=== PATIENT | female | born 1995 | race Caucasian/White ===

== ENCOUNTER → 2016-06-13 | Outpatient (CLI) | payer BC ==
[~2016-06-13] MED LIST: ASCORBIC ACID500 MG PO; FEOSOL-DPS325 MG PO; MOTRIN-DPS600 MG PO; OXY IR DPS5 MG PO; PHENERGAN DPS25 MG PO; REGLAN-DPS10 MG PO
== END | disposition home or self-care (01) ==
LOC: RAD.S 08:00
DX: R10.9 Unspecified abdominal pain (principal); R19.7 Diarrhea, unspecified; R11.10 Vomiting, unspecified

== ENCOUNTER → 2016-07-01 | Outpatient (CLI) | payer BC | END | disposition home or self-care (01) | LOC: RAD.S 08:00 | DX: R10.9 Unspecified abdominal pain (principal) ==

== ENCOUNTER 2016-07-09 08:05 | Emergency (ER) | payer BC ==
--- NOTE | 2016-07-11 10:03 | NUR ---
Pt triggered for high ED user. Called and spoke with pt. Pt has insurance, has a PCP, and transportation, and able to fill prescribed medications. Deny any needs or concerns at this time.
--- NOTE | 2016-07-14 21:33 | ER ---
ADMIT: 07/09/2016 RM/LOC: ER [facility] MR#: [id number] [id number] [place], [place] [address] RAEANN CAZARES [address] [place] [address] Emergency Room Report SEX: F AGE: 21 : 1995 DATE: 07/09/2016 ADDENDUM: CHIEF COMPLAINT: Abdominal pain. HISTORY OF PRESENT ILLNESS: This is a 21-year-old female who is well known to our ER. She has had multiple workups for her abdomen. She has seen digital content coordinator, she has seen Ob-Quick Mixer Operator. No one has figured out what is causing this belly pain. Here, her vitals were normal. She is not febrile. She is not tachycardic. She is not vomiting. We discussed doing labs versus no labs. She is okay with no labs at this time. She is given Toradol and a GI cocktail. She feels significantly better. She is in the room sleeping now. CLINICAL IMPRESSION: Chronic abdominal pain. ROM Mendoza / Jewel Lomax MD / poonam JOB #: [id number] CC: Jewel Lomax MD, Attending Physician UNKNOWN, Family Physician
== END 2016-07-09 10:30 | disposition home or self-care (01) ==
LOC: ER 08:05
DX: G89.29 Other chronic pain (principal); R10.9 Unspecified abdominal pain; Z88.1 Allergy status to other antibiotic agents

== ENCOUNTER 2016-07-12 13:46 | Emergency (ER) | payer BC ==
--- NOTE | 2016-07-19 11:01 | ER ---
ADMIT: 07/12/2016 RM/LOC: ER [facility] MR#: [id number] [address] [place], [place] [address] RAEANN CAZARES [address] [place] [address] Emergency Room Report SEX: F AGE: 21 : 1995 DATE: 07/12/2016 CHIEF COMPLAINT: Abdominal pain. HISTORY OF PRESENT ILLNESS: This is a 21-year-old, female, who presents today with chronic abdominal pain for the past 4 years. The patient states since Friday she has noticed increasing pain in her abdomen. She admits to fever, chills, nausea, vomiting, and some diarrhea 2 to 3 days ago. She states that she feels like "her inside are trying to pull themselves apart." The patient says the pain is allover. She is unable to give an exact location of her pain. She has been worked up multiple times for chronic abdominal pain with little result. She uses nausea medication and other medications for pain as needed at home and states they do not help. States she feels like her body is immune to them at this point. COURSE IN THE EMERGENCY DEPARTMENT: The patient was seen and examined. She is extremely tearful, very anxious. She complains of abdominal pain everywhere. She does have a temp of 100.0. I did obtain some basic labs on her today. CBC shows white count 12.4, hemoglobin 12, hematocrit 37.3, and platelets 366. CMP; sodium 142, potassium 3.2, CO2 of 25, BUN 12, creatinine 0.7, and glucose 108. Liver enzymes within normal limits. I also got a urine on her, which was normal. The patient was started on IV normal saline running at 150 mL/h. She was given Toradol 15 mg IV. I did initially order some medications for nausea to include Reglan and Benadryl; however, the patient was resting comfortably. She was sedate, decided to hold these medications. I repeatedly walked by her room, saw her resting comfortably with her eyes closed. No vital sign abnormalities. Upon entering the room, she becomes extremely tearful, begins to complain of extreme pain that her medications are not working that she needs to be admitted for pain control and observation. IMPRESSION: Chronic abdominal pain. DISPOSITION: I did have a discussion with the patient that she needs to ADMIT: 07/12/2016 RM/LOC: ER [facility] MR#: [id number] [address] [address] RAEANN CAZARES [address] [place] [address] Emergency Room Report SEX: F AGE: 21 : 1995 follow up with her primary care provider for further management of her pain as the ER is not the appropriate place for chronic pain management. I told her to use Tylenol or Motrin as needed for pain. Activity as tolerated. She will continue her home medications for pain and nausea as needed. Certainly return with any worsening signs or symptoms, but I would like her to follow up with her primary care doctor. Given the fact that she is inflicting on herself, the relief of her pain is very concerning. However, she denies any homicidal or suicidal ideation at this time. Questions were sought and answered to the best of my ability. The patient was discharged from the department in stable condition. ROM Irwin / Dhruv Leyva MD / poonam JOB #: [id number] CC: Dhruv Leyva MD, Attending Physician UNKNOWN, Family Physician Stacey Valentin APRN, BUFFING MACHINE OPERATOR-C
== END 2016-07-12 17:15 | disposition home or self-care (01) ==
LOC: ER 13:46
DX: R10.84 Generalized abdominal pain (principal); G89.29 Other chronic pain; F17.210 Nicotine dependence, cigarettes, uncomplicated; D64.9 Anemia, unspecified; Z88.8 Allergy status to other drugs, medicaments and biological substances

== ENCOUNTER 2016-08-22 17:14 | Emergency (ER) | payer BC ==
--- NOTE | 2016-08-27 23:43 | ER ---
ADMIT: 08/22/2016 RM/LOC: ER [facility] MR#: [id number] [id number] [place], [place] [address] RAEANN CAZARES [address] [place] [address] Emergency Room Report SEX: F AGE: 21 : 1995 DATE: 08/22/2016 PRIMARY PROVIDER: Dr. Simon and Abdifatah Valentin. HISTORY OF PRESENT ILLNESS: The patient is a 21-year-old female, presents to the emergency room complaining of left lower abdominal pain that started this morning at 3:00 a.m. and it is 5 o'clock. She says this has been going on for several weeks as well. She has had issues with abdominal problems, which she had been diagnosed as having endometriosis and an IUD was placed, so the hormones could help improve her chronic abdominal pain. She says I think there is something wrong with the IUD. So, at this point, even though she was told how to check for the cord of the IUD she has not done so. She has had the IUD for almost a week. She denies any vaginal discharge. No fever, nausea, or vomiting. No diarrhea. She states that she is immune to all pain medications and admits that morphine is the only thing that helps her. I declined giving her morphine. I told her I was going to try something different. So, I gave her Toradol and Phenergan. PHYSICAL EXAMINATION: VITAL SIGNS: Blood pressure 149/90, heart rate 78, respirations 14, and O2 sats 96%. By the time the ultrasound was done, we got the reading the IUD is in place and she did have a hemorrhagic cyst in the left side. She was asleep, very comfortable. Did not complain of any pain and was willing to leave and called to pick her up. IMPRESSION: Hemorrhagic ovarian cyst. Left adnexa IUD in place. Instructions given. A prescription for ketorolac given to continue treatment for her acute pain. ROM De Leon / Jame Guerrier MD / poonam JOB #: [id number] CC: Jame Guerrier MD, Attending Physician
== END 2016-08-22 19:40 | disposition home or self-care (01) ==
LOC: ER 17:14
DX: N83.202 Unspecified ovarian cyst, left side (principal); D64.9 Anemia, unspecified; Z88.1 Allergy status to other antibiotic agents

== ENCOUNTER 2016-08-25 11:10 | Emergency (ER) | payer BC ==
--- NOTE | 2016-08-31 17:58 | ER ---
ADMIT: 08/25/2016 RM/LOC: ER [facility] MR#: [id number] [address] [place], [place] [address] RAEANN CAZARES [address] [place] [address] Emergency Room Report SEX: F AGE: 21 : 1995 DATE: 08/25/2016 ADDENDUM: This patient comes into the ER because she has lots of ovarian cysts that is causing her severe pain. She was seen in the ER 2 days ago, they did an ultrasound and diagnosed her as having a cyst. She says that the pain has been continuous despite taking the Toradol that was prescribed to her. She is nauseated and vomiting and rates the pain as a 10/10. On physical exam, her pain is in the left lower quadrant. There is no rebound tenderness or guarding, and she is quite tearful during my exam. On vaginal exam, she has a mild amount of bleeding in the vagina. Cervix is closed, and she is tender in the left adnexa. No cervical motion tenderness. I did do chlamydia and GC and gonorrhea. Urinalysis, CBC, and CMP were also normal. I repeated the ultrasound, which looked similar to the previous ultrasound, but less blood in the pelvis as previously. She was given morphine in the ER. When I went to re-evaluate her, she was feeling better. I wrote a prescription for tramadol, and she is to follow up with her primary as needed. Please see my T-sheet. ROM De Luna / Dhruv Leyva MD / poonam JOB #: [id number] CC: Dhruv Leyva MD, Attending Physician Stacey Valentin APRN, PUBLISHING EDITOR-C, Family Physician James Salgado MD
== END 2016-08-25 18:14 | disposition home or self-care (01) ==
LOC: ER 11:10
DX: N83.202 Unspecified ovarian cyst, left side (principal); F17.200 Nicotine dependence, unspecified, uncomplicated; Z88.2 Allergy status to sulfonamides; Z88.8 Allergy status to other drugs, medicaments and biological substances; Z79.899 Other long term (current) drug therapy

== ENCOUNTER 2016-09-07 09:17 | Emergency (ER) | payer BC ==
--- NOTE | 2016-09-13 15:59 | ER ---
ADMIT: 09/07/2016 RM/LOC: ER [facility] MR#: [id number] [address] [address] RAEANN CAZARES [address] [place] [address] Emergency Room Report SEX: F AGE: 21 : 1995 DATE: 09/07/2016 ADDENDUM: This patient comes into the ER because she had a sudden onset of severe abdominal pain. She has chronic abdominal pain. She is not sure what the cause is. She has had several workups by her physician and also in the emergency room, and no one is sure what the cause of her pain. She rates it as a 10/10. She is tearful and flailing on the bed. Her abdomen has diffuse tenderness upon palpation. She was given Ativan, Phenergan, and Toradol. When I went to re-evaluate her, her pain was gone. She walked out the door without any issues, had no fever, able to keep fluids down in the ER. Please see my T-sheet. ROM De Luna / Jewel Lomax MD / poonam JOB #: [id number] CC: Jewel Lomax MD, Attending Physician Stacey Valentin APRN, COMPONENT INSPECTOR-C, Family Physician
== END 2016-09-07 10:40 | disposition home or self-care (01) ==
LOC: ER 09:17
DX: R10.84 Generalized abdominal pain (principal); F17.210 Nicotine dependence, cigarettes, uncomplicated; Z88.2 Allergy status to sulfonamides; Z88.8 Allergy status to other drugs, medicaments and biological substances

== ENCOUNTER 2016-09-09 11:10 | Emergency (ER) | payer BC ==
--- NOTE | 2016-09-13 19:13 | ER ---
ADMIT: 09/09/2016 RM/LOC: ER [facility] MR#: [id number] [address] [place], [place] [address] RAEANN CAZARES [address] [place] [address] Emergency Room Report SEX: F AGE: 21 : 1995 DATE: 09/09/2016 HISTORY OF PRESENT ILLNESS: The patient is a 21-year-old, recurrent visitor of the emergency room, comes in today complaining of abdominal pain. She says there is a burning sensation. She has talked to her primary provider. They think all this is in her mind. She has been bleeding vaginally for several months now. She does have an IUD in place that has been checked several times. As she has come into the ER, we have done ultrasounds to make sure that is in place. Last time, she was in the ER, she had a rupture cyst in almost a week ago. She also had wisdom tooth, endometriosis that she states is the cause of all her pain. She has had anemia. ALLERGIES: SHE IS ALLERGIC TO BACTRIM AND ZOFRAN. SOCIAL HISTORY: She is a smoker of 1/3rd pack a day. Quit drugs recently. PHYSICAL EXAMINATION: Blood pressure 135/89, heart rate is 106, respirations 16, and temp 98.6. She is flailing and moving all over the room, bending over and pointing to her abdomen, there is no rebound, tenderness, nor guarding. She cried but there are no tears. I did do a vaginal examination, which did show some brownish discharge. I tested it in wet mount and came back negative for clue cells. Her cervix is closed and no cervical motion tenderness. I did do a CBC on her to check for hemoglobin and a white count is 10.3 with a hemoglobin of 11.7, hematocrit is 36.7. She was given Toradol 30 mg, Phenergan 25, and Ativan 1 mg. She was discharged with a diagnosis of chronic abdominal pain, endometriosis, ovarian cyst, which is follicular and generalized abdominal pain. Ultram prescription for home use and encouraged her very strongly to follow up with her primary provider. They can help her. They can refer her somewhere and I mentioned how important it is to have one provider for care, so she can have the best possible followup for her problem. While I am talking to her, she was texting. She states she needs to find out what the problem is and the pain is unbearable. At times, she wants to . I asked if she had a plan, she denied that. After the medications prescribed, she was very relaxed and no complaint of pain. ROM De Leon / oJse Stoddard MD / poonam JOB #: [id number] CC: Dhruv Leyva MD, Attending Physician UNKNOWN, Family Physician
== END 2016-09-09 14:40 | disposition home or self-care (01) ==
LOC: ER 11:10
DX: N80.9 Endometriosis, unspecified (principal); N83.02 Follicular cyst of left ovary; F17.210 Nicotine dependence, cigarettes, uncomplicated; Z88.0 Allergy status to penicillin; Z88.8 Allergy status to other drugs, medicaments and biological substances

== ENCOUNTER 2016-09-23 10:51 | Emergency (ER) | payer BC ==
--- NOTE | 2016-09-25 10:39 | ER ---
ADMIT: 09/23/2016 RM/LOC: ER [facility] MR#: [id number] [address] [place], [place] [address] RAEANN CAZARES [address] [place] [address] Emergency Room Report SEX: F AGE: 21 : 1995 DATE: 09/23/2016 TIME: 1051 hours. Please refer to my T-sheet for complete H and P. Briefly, the patient is a 21-year-old, comes in with abdominal pain. It has been for years, on and off, but it is severe today. She has been told she has endometriosis. She has an IUD. She also talked to her nurse about problems in the remote past. She did not want to bring up to me, she would like to talk to, it is already is on. The pain comes and goes. The IUD has not helped. She is sexually active. Says she had an STD checked within about 2 months, it was normal. She has not changed her sexual activity. She feels like the IUD has made it worse. PHYSICAL EXAMINATION: VITAL SIGNS: Stable. HEENT: Grossly normal. LUNGS: Clear. HEART: Regular. ABDOMEN: Diffusely tender. No rebound. No guarding. No pain right at McBurney's point, just lower pelvis. EMERGENCY DEPARTMENT COURSE: CBC normal except white count 18.9 and platelets 480. Chemistries normal except potassium 3.4, glucose 121. UA showed 2 white cells, otherwise 3+ ketones and normal. Urine negative. I did a CT scan which was negative. We gave her Zofran and Toradol, she was improved. I had a long discussion with the police due to the concern she only expressed with the nurse that she did not want me involved with. Crisis Center sent out our patient. They have worked to that on their side. She did not bring any up to me, did not want to talk to me about it. ASSESSMENT: 1. Abdominal pain. 2. Anxiety. 3. Dehydration. PLAN: Fluids. Motrin, I wrote her script for 600 mg t.i.d. I wanted her to follow up with Dr. Simon. Return if worse and coordinate with crisis center. Jame Guerrier MD/ poonam JOB #: [id number] CC: Jame Guerrier MD, Attending Physician Stacey Valentin APRN, EMS INSTRUCTOR-C, Family Physician
== END 2016-09-23 14:30 | disposition home or self-care (01) ==
LOC: ER 10:51
DX: R10.84 Generalized abdominal pain (principal); F41.9 Anxiety disorder, unspecified; E86.0 Dehydration; Z88.1 Allergy status to other antibiotic agents; Z88.8 Allergy status to other drugs, medicaments and biological substances